=== PATIENT | female | born 1935 | race Caucasian/White ===

== ENCOUNTER 2017-05-31 14:48 | Outpatient (CLI) | payer OTHER, MEDICAID | END 2017-05-31 20:10 | disposition home or self-care (01) | LOC: SMA 14:48 | PROVIDERS: ATTEND Internal Medicine | DX: Z12.31 Encounter for screening mammogram for malignant neoplasm of breast (principal); N64.59 Other signs and symptoms in breast | CPT/HCPCS: 77067 ==